=== PATIENT | female | born 2000 | race Caucasian/White ===

== ENCOUNTER → 2023-06-02 | Outpatient (CLI) | payer OTHER | LOC: M WHC 12:20 | PROVIDERS: ATTEND Obstetrics & Gynecology | DX: Z34.93 Encounter for supervision of normal pregnancy, unspecified, third trimester (principal) ==

== ENCOUNTER → 2023-06-02 | Outpatient (CLI) | payer OTHER ==
[2023-06-02 17:51] LABS: HEMATOCRIT 33.4 % (36.0-47.0); HEMOGLOBIN 9.7 g/dl (12.0-15.5); MEAN CORPUSCULAR HEMOGLOBIN 22.9 pg (27.0-33.0); PLATELET COUNT, AUTOMATED 238 10^3/uL (150-450); RED BLOOD COUNT 4.23 10^6/uL (4.00-5.40); WHITE BLOOD COUNT 9.3 10^3/uL (4.0-10.0)
== END ==
LOC: M PLALAB 13:18
PROVIDERS: ATTEND Obstetrics & Gynecology
DX: Z34.93 Encounter for supervision of normal pregnancy, unspecified, third trimester (principal)

== ENCOUNTER → 2023-06-14 | Outpatient (REF) | payer MEDICARE, MEDICAID | LOC: M PLALAB 08:35 | PROVIDERS: ATTEND Obstetrics & Gynecology | DX: Z36.85 Encounter for antenatal screening for Streptococcus B (principal) ==

== ENCOUNTER 2023-07-05 08:18 | Inpatient (IN) | payer MEDICAID, MEDICARE, OTHER ==
[2023-07-05] VITALS (30 sets, daily range): BP systolic 132–214; BP diastolic 60–154; TEMP 98.4
[~2023-07-05] VITALS: Ht 165.1 cm; Wt 167.3 kg
[2023-07-05] MEDS ORDERED: ACET-897 PO (09:04)
[2023-07-05] MEDS ORDERED: HOME MED LIST COMPLETE! XX SCH (09:05)
[2023-07-05] MEDS ORDERED: TUMS750C5 PO (09:05)
[2023-07-05] MEDS ORDERED: LIDOCAINE 1% MDV 20ML VIAL INFIL PRN (09:25)
[2023-07-05] MEDS ORDERED: OXYTOCIN DRIP 30 UNITS in IV 1 EA IV PRN ×4 (09:25)
[2023-07-05] MEDS ORDERED: TRANEXAMIC ACID INJection 1,000 MG in NS 100 ML IV PRN (09:25)
[2023-07-05] MEDS ORDERED: OXYTOCIN INJ 10UNITS/ML 1ML VIAL IM PRN (09:25)
[2023-07-05] MEDS ORDERED: ONDANSETRON 4MG 2ML VIAL IV PRN (09:25)
[2023-07-05] MEDS ORDERED: METHYLERGONOVINE MALEATE 0.2MG/ML 1ML VIAL IM PRN (09:25)
[2023-07-05] MEDS ORDERED: CARBOPROST TROMETHAMINE 250 MCG/ML AMP IM PRN (09:25)
[2023-07-05 10:37] LABS: HEMATOCRIT 30.7 % (36.0-47.0); HEMOGLOBIN 8.9 g/dl (12.0-15.5); MEAN CORPUSCULAR VOLUME 75.8 fl (80.0-96.0); PLATELET COUNT, AUTOMATED 230 10^3/uL (150-450); RED BLOOD COUNT 4.05 10^6/uL (4.00-5.40); WHITE BLOOD COUNT 8.7 10^3/uL (4.0-10.0)
[2023-07-05] MEDS: miSOPROStol 50MCG 1/2 TABLET PO SCH ×3 (10:45→20:01)
[2023-07-05 11:05] LABS: LDH LACTATE DEHYDROGENASE 283 U/L (120-246)
[2023-07-05 11:06] LABS: ALT/SGPT 21 U/L (7.0-40); AST/SGOT 19 U/L (<34); BILIRUBIN,TOTAL 0.6 MG/DL (0.3-1.2); CREATININE FOR GFR 0.47 MG/DL (0.55-1.30); GLOMERULAR FILTRATION RATE > 60.0 (>60)
[2023-07-05 11:28] LABS: URIC ACID 3.4 MG/DL (3.1-7.8)
[2023-07-05] MEDS ORDERED: NIFEdipine 10 MG CAP PO ONE ×2 (16:00→17:35)
[2023-07-05] MEDS ORDERED: ACETAMINOPHEN 500 MG TAB PO ONE (16:55)
[2023-07-05 17:23] LABS: CREATININE,RANDOM URINE 200.1 MG/DL
[2023-07-05] MEDS ORDERED: LABETALOL 100MG/20ML VIAL IV STA (19:13)
[2023-07-06] VITALS (51 sets, daily range): BP systolic 101–197; BP diastolic 64–98; TEMP 97.8; O2SAT 99
[2023-07-06] MEDS: miSOPROStol 50MCG 1/2 TABLET PO SCH (00:24)
[2023-07-06] MEDS ORDERED: OXYTOCIN DRIP 30 UNITS in IV 1 EA IV SCH (02:45)
[2023-07-06] MEDS: LR 1,000 ML IV SCH ×3 (05:13→21:03)
[2023-07-06] MEDS: NIFEdipine 30MG XL TAB PO SCH (11:05)
[2023-07-06] MEDS ORDERED: ePHEDrine SULFATE 25 MG/5 ML(5MG/ML) SYRINGE IVP PRN (14:10)
[2023-07-06] MEDS ORDERED: EPIDURAL/PCA KEYS XX PRN (14:10)
[2023-07-06] MEDS ORDERED: LR 500 ML IV PRN (14:10)
[2023-07-06] MEDS ORDERED: diphenhydrAMINE 50MG/ML VIAL IV PRN (14:10)
[2023-07-06] MEDS ORDERED: NALOXONE INJ 0.4MG/1ML VIAL IV PRN (14:10)
[2023-07-06] MEDS ORDERED: ONDANSETRON 4MG 2ML VIAL IV PRN (14:10)
[2023-07-06 14:32] LABS: HEMATOCRIT 30.6 % (36.0-47.0); HEMOGLOBIN 9.1 g/dl (12.0-15.5); MEAN CORPUSCULAR HEMOGLOBIN 22.6 pg (27.0-33.0); MEAN CORPUSCULAR HGB CONC 29.7 g/dl (32.0-36.5); MEAN CORPUSCULAR VOLUME 76.1 fl (80.0-96.0); PLATELET COUNT, AUTOMATED 221 10^3/uL (150-450); RED BLOOD COUNT 4.02 10^6/uL (4.00-5.40); WHITE BLOOD COUNT 8.4 10^3/uL (4.0-10.0)
[2023-07-06 14:50] LABS: ALKALINE PHOSPHATASE 141 U/L (46-116); ALT/SGPT 19 U/L (7.0-40); AST/SGOT 11 U/L (<34); BILIRUBIN,TOTAL 0.8 MG/DL (0.3-1.2); BLOOD UREA NITROGEN 9 MG/DL (9-23); CALCIUM LEVEL 8.1 MG/DL (8.5-10.1); CARBON DIOXIDE LEVEL 21 MMOL/L (20-31); CHLORIDE LEVEL 109 MMOL/L (98-107); CREATININE FOR GFR 0.46 MG/DL (0.55-1.30); GLOMERULAR FILTRATION RATE > 60.0 (>60); GLUCOSE, FASTING 90 MG/DL (60-100); POTASSIUM SERUM 4.1 MMOL/L (3.5-5.1); SODIUM LEVEL 139 MMOL/L (136-145); TOTAL PROTEIN 5.6 G/DL (5.7-8.2)
[2023-07-06] MEDS: FENTANYL/ROPIVACAINE/NACL BAG 100 ML EPIDURAL SCH ×2 (15:13→22:59)
[2023-07-06] MEDS ORDERED: ACETAMINOPHEN 500 MG TAB PO PRN (18:25)
[2023-07-07] VITALS (15 sets, daily range): BP systolic 119–158; BP diastolic 60–82; O2SAT 98–99
[2023-07-07] MEDS ORDERED: IBUPROFEN 600MG TAB PO PRN (01:30)
[2023-07-07] MEDS ORDERED: RHOGAM 300MCG (1500IU) INJ IM SCH (01:30)
[2023-07-07] MEDS ORDERED: DIBUCAINE 1% OINTMENT 30GM TOP PRN (01:30)
[2023-07-07] MEDS ORDERED: DOCUSATE SODIUM 100MG CAPSULE PO PRN (01:30)
[2023-07-07] MEDS ORDERED: METHYLERGONOVINE MALEATE 0.2 MG TAB PO PRN (01:30)
[2023-07-07] MEDS: ACETAMINOPHEN 500 MG TAB PO PRN (05:59)
[2023-07-07 06:10] LABS: HEMATOCRIT 30.6 % (36.0-47.0); HEMOGLOBIN 8.9 g/dl (12.0-15.5); MEAN CORPUSCULAR HEMOGLOBIN 22.1 pg (27.0-33.0); MEAN CORPUSCULAR HGB CONC 29.1 g/dl (32.0-36.5); MEAN CORPUSCULAR VOLUME 76.1 fl (80.0-96.0); PLATELET COUNT, AUTOMATED 221 10^3/uL (150-450); RED BLOOD COUNT 4.02 10^6/uL (4.00-5.40)
[2023-07-07 06:26] LABS: URIC ACID 3.8 MG/DL (3.1-7.8)
[2023-07-07 06:28] LABS: LDH LACTATE DEHYDROGENASE 223 U/L (120-246)
[2023-07-07 06:29] LABS: ALT/SGPT 20 U/L (7.0-40); AST/SGOT 16 U/L (<34); BILIRUBIN,TOTAL 1.2 MG/DL (0.3-1.2); CREATININE FOR GFR 0.49 MG/DL (0.55-1.30); GLOMERULAR FILTRATION RATE > 60.0 (>60)
[2023-07-07] MEDS: PRENATAL VITAMINS CHEWABLE TABLET PO SCH (09:00)
[2023-07-07] MEDS: NIFEdipine 30MG XL TAB PO SCH (09:49)
[2023-07-08 02:00] VITALS: BP 128/59; O2SAT 99
[2023-07-08 06:00] VITALS: BP 128/55; O2SAT 99
[2023-07-08] MEDS: ACETAMINOPHEN 500 MG TAB PO PRN (06:34)
[2023-07-08] MEDS: PRENATAL VITAMINS CHEWABLE TABLET PO SCH (09:30)
[2023-07-08 09:31] VITALS: BP 149/70
[2023-07-08] MEDS: NIFEdipine 30MG XL TAB PO SCH (09:31)
[2023-07-08 10:00] VITALS: BP 119/57; O2SAT 100
[2023-07-08] MEDS ORDERED: IBUP-1022 PO (12:25)
[2023-07-09] MEDS ORDERED: MEASLES,MUMPS,RUBELLA VACCINE INJ (MMR-II) SC.IMMUN ONE (09:00)
== END 2023-07-08 13:38 | disposition home or self-care (01) | DRG 560 ==
LOC: M LDI 08:18 → M OBS 07-07 03:30
PROVIDERS: ADMIT Advanced Practice Midwife; ATTEND Advanced Practice Midwife
PROC: 3E0P7GC Introduction of Other Therapeutic Substance into Female Reproductive, Via Natural or Artificial Opening (ICD-10-PCS; 2023-07-05)
PROC: 10907ZC Drainage of Amniotic Fluid, Therapeutic from Products of Conception, Via Natural or Artificial Opening (ICD-10-PCS; 2023-07-06)
PROC: 10E0XZZ Delivery of Products of Conception, External Approach (ICD-10-PCS; principal; 2023-07-07)
PROC: 0KQM0ZZ Repair Perineum Muscle, Open Approach (ICD-10-PCS; 2023-07-07)
DX: O99.214 Obesity complicating childbirth (principal); Z37.0 Single live birth; E66.01 Morbid (severe) obesity due to excess calories; O69.1XX0 Labor and delivery complicated by cord around neck, with compression, not applicable or unspecified; O70.1 Second degree perineal laceration during delivery; Z3A.39 39 weeks gestation of pregnancy

== ENCOUNTER → 2024-05-01 | Outpatient (REF) | payer OTHER, MEDICAID ==
[~2024-05-01] MED LIST: ACET-897 PO; IBUP-1022 PO; TUMS750C5 PO
[2024-05-01 17:11] LABS: HEMATOCRIT 37.6 % (36.0-47.0); HEMOGLOBIN 10.9 g/dl (12.0-15.5); MEAN CORPUSCULAR HEMOGLOBIN 22.1 pg (27.0-33.0); MEAN CORPUSCULAR VOLUME 76.3 fl (80.0-96.0); PLATELET COUNT, AUTOMATED 278 10^3/uL (150-450); RED BLOOD COUNT 4.93 10^6/uL (4.00-5.40); WHITE BLOOD COUNT 8.3 10^3/uL (4.0-10.0)
[2024-05-01 17:30] LABS: ALBUMIN 3.2 G/DL (3.2-5.2); ALKALINE PHOSPHATASE 96 U/L (46-116); ALT/SGPT 36 U/L (7.0-40); AST/SGOT 13 U/L (<34); BILIRUBIN,TOTAL 0.8 MG/DL (0.3-1.2); BLOOD UREA NITROGEN 14 MG/DL (9-23); CARBON DIOXIDE LEVEL 25 MMOL/L (20-31); CHLORIDE LEVEL 106 MMOL/L (98-107); CHOLESTEROL LEVEL 122 MG/DL (<200); CHOLESTEROL RISK RATIO 2.77 (<5); CREATININE FOR GFR 0.61 MG/DL (0.55-1.30); GLOMERULAR FILTRATION RATE > 60.0 (>60); GLUCOSE, FASTING 108 MG/DL (60-100); LDL CHOLESTEROL 57.2 MG/DL (<100); POTASSIUM SERUM 4.6 MMOL/L (3.5-5.1); SODIUM LEVEL 139 MMOL/L (136-145); TOTAL PROTEIN 6.8 G/DL (5.7-8.2); TRIGLYCERIDES LEVEL 104 MG/DL (<150)
[2024-05-01 17:32] LABS: THYROID STIMULATING HORMONE 1.874 uIU/ML (0.55-4.78)
[2024-05-01 18:39] LABS: HEMOGLOBIN A1c 5.8 % (4.0-6.0)
== END ==
LOC: M LAB REF 16:18
PROVIDERS: ATTEND Nurse Practitioner Family
DX: E66.01 Morbid (severe) obesity due to excess calories (principal)

== ENCOUNTER 2024-10-20 12:43 | Emergency (ER) | payer OTHER ==
[~2024-10-20] VITALS: Ht 170.2 cm; Wt 176.2 kg
[2024-10-20] MEDS: LIDOCAINE 1% MDV 20ML VIAL SC ONE (13:59)
[2024-10-20] MEDS: DOXYCYCLINE HYCLATE 100MG TABLET PO ONE (14:48)
[2024-10-20 15:01] VITALS: BP 136/76; TEMP 96.7; O2SAT 100
== END 2024-10-20 15:04 | disposition home or self-care (01) ==
LOC: M ED 12:43
DX: L02.213 Cutaneous abscess of chest wall (principal); Z79.1 Long term (current) use of non-steroidal anti-inflammatories (NSAID)